=== PATIENT | female | born 2005 | race Caucasian/White ===

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

== ENCOUNTER → 2023-07-17 | Outpatient (CLI) | payer OTHER ==
--- NOTE | 2023-07-18 12:08 | US ---
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 IMPRESSION: No evidence to suggest thyroid nodule. 2017 ACR TI-RADS LEVEL: TR-RADS 1 - BENIGN: No FNA *Highest TI-RADS level nodule reported
== END | disposition home or self-care (01) ==
LOC: RADUSWWP 15:31
PROVIDERS: ATTEND Family Medicine
DX: E04.1 Nontoxic single thyroid nodule (principal)
CPT/HCPCS: 76536

== ENCOUNTER → 2023-08-09 | Day surgery (SDC) | payer OTHER ==
[~2023-08-09] MED LIST: LIDOCAINE 1% (10MG/ML) FOR IV START INTRADERMA PRN; PROPOFOL 10 MG/ML 20 ML VIAL IV ONE
[2023-08-09] MEDS: LACTATED RINGERS 1,000 ML IV SCH (07:06)
[2023-08-09] MEDS: ONDANSETRON 4 MG/2 ML VIAL ONE (07:07)
[2023-08-09] MEDS: DEXAMETHASONE SOD PHOSPHATE 4 MG/ML 1 ML VIAL IVP ONE (07:07)
[2023-08-09 07:26] VITALS: RESP 16; TEMP 97.4
--- NOTE | 2023-08-09 07:56 | P.PCN ---
Date of Procedure: 08/09/23 Procedure(s) Performed: Brief history: Patient is a pleasant 17-year-old white female scheduled for an elective upper endoscopy as well as colonoscopy as a part of evaluation of chronic diarrhea, abdominal pain and progressive weight loss of 20 pounds in the last 3 to 4 years duration. Procedure performed: Esophagogastroduodenoscopy with biopsy Colonoscopy with biopsy Preoperative diagnosis: Chronic abdominal pain, diarrhea and progressive weight loss of 3 years duration Anesthesia: MAC Procedure: After informed consent was obtained from the patient was brought into the endoscopy unit and IV sedation was administered by anesthesia under continuous monitoring. Initially upper endoscopy was done. The Olympus GF 160 video endoscope was inserted inserted into the mouth and esophagus intubated without any difficulty and was gradually advanced into the stomach and duodenum and carefully examined. The bulb and second part of the duodenum appeared normal. Biopsies were done from the duodenum to evaluate for celiac disease. The scope was then withdrawn into the stomach adequately insufflated with air and upon careful examination the antrum had mild gastritis and biopsies were done from this area. Body, cardia and fundus appeared normal. The scope was then withdrawn into the esophagus. The GE junction was located at 40 cm to the incisors. It appeared regular with no erythema erosions or ulcerations. Rest of the esophagus appeared normal. Patient tolerated the procedure well. At this time the patient continued to remain sedation. Initial digital rectal examination was normal. Olympus CF 160 video colonoscope was then inserted into the rectum and gradually advanced to the cecum without any difficulty. Careful examination was performed as the scope was gradually being withdrawn. The prep was excellent. The cecum, ascending colon, transverse colon, descending colon, sigmoid colon and rectum appeared normal. Retroflexion was performed in the rectum and no lesions were noted.Biopsies were done from the ascending and descending colon to rule microscopic/collagenous colitis. Patient tolerated the procedure well. Impression: 1. Upper endoscopy revealed mild antral gastritis but no evidence of esophagitis or peptic ulcer disease 2. Colonoscopy was within normal limits with no evidence of colitis or colorectal neoplasia. Terminal ileum was also normal. Recommendations: Findings of this examination were discussed with the patient as well as her family. She was advised to follow-up with the biopsy results. She will be seen in the office in 3 to 4 weeks.
[2023-08-09 08:57] VITALS: BP 102/61; PULSE 88
== END ==
LOC: ORWHC2ENDO 06:32
PROVIDERS: ATTEND Internal Medicine Gastroenterology
DX: K29.50 Unspecified chronic gastritis without bleeding (principal); K52.9 Noninfective gastroenteritis and colitis, unspecified; G89.29 Other chronic pain; F41.9 Anxiety disorder, unspecified; F32.A Depression, unspecified; Z79.899 Other long term (current) drug therapy; Z88.2 Allergy status to sulfonamides
CPT/HCPCS: 81025; 88305; 45380; 43239; J1100; J2405; J2704

== ENCOUNTER → 2023-11-25 | Outpatient (CLI) | payer OTHER ==
--- NOTE | 2023-12-19 07:02 | MR ---
Patient: Kg Drummond L Ordering Physician: Unknown, Unknown ID: [id number] Phone, Pager: Phone: N/A Pager: N/A : 2005 Age/Gender: 17Y, F Primary Location: N/A Procedure: MR angio he ad wo con Study Date: 11/25/2023 7:13:49 PM EXAMINATION TYPE: MR angio head wo con DATE OF EXAM: 11/25/2023 9:56 PM CLINICAL INDICATION: Headaches, dizziness COMPARISON: Same day MRI. Technical: 3-D [id number] Axial with MIP reconstruction created on a separate workstation.. IV Contrast: None Findings: Vertebral arteries: The vertebral arteries are patent. Vertebral arteries are: Codominant. Basilar artery: The basilar artery is intact. The basilar artery bifurcation is normal. Internal Carotid arteries: The cervical, petrous, cavernous and supraclinoid segments are normal. MARVIN: Patent with no evidence of aneurysm. ACOM: Present without evidence of aneurysm. MCA: Patent with no evidence of aneurysm. 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 origin of the right. PCOM: origin right posterior cerebral artery. Normal caliber left. IMPRESSION: 1. No evidence of aneurysm or significant stenosis. 2. Area seen on same day MRI within the medial right parietal lobe is non the [id number].
--- NOTE | 2023-12-19 07:03 | MR ---
Patient: Kg Drummond L Ordering Physician: Unknown, Unknown ID: [id number] Phone, Pager : Phone: N/A Pager: N/A : 2005 Age/Gender: 17Y, F Primary Location: N/A Procedure: MR brain w o/w con Study Date: 11/25/2023 7:15:28 PM EXAMINATION TYPE: MR brain wo/w con DATE OF EXAM: 11/25/2023 9:51 PM CLINICAL INDICATION: Dizziness, headaches COMPARISON: Same day angiogram. TECHNIQUE: Multi planar, multi sequence imaging was performed through the brain including: T1, T2, In version recovery, susceptibility weighted imaging and gradient echo imaging and Diffusion weighted im aging. The patient was then given intravenous contrast and multi planar, T1 fat-saturation images wer e obtained. IV Contrast: cc 5 cc Gadavist. FINDINGS: Right medial parietal lobe area of increased FLAIR signal lower T1 high T2 signal. Involving the subc ortical white matter. Increased FLAIR signal area measures 20 x 11 x 13 mm. The casper-white junctions, ventricular system, basal cisterns appear unremarkable. Diffusion-weighted imaging shows no evidence of restricted diffusion to suggest acute/subacute infarct. Intracranial ar terial flow voids are maintained. Midline structures show no abnormality. The susceptibility weighted images do not reveal any evidence for micro-hemorrhage. After administration of gadolinium, no abnor mal enhancement is seen. The bone marrow signal is within normal limits. Paranasal sinuses and mastoid air cells: No significant paranasal sinus disease. Visualized orbits: Orbital contents are intact. IMPRESSION: 1. Abnormal FLAIR signal within the medial aspect of the right parietal lobe no abnormal postcontras t enhancement within this region. Findings are nonspecific with low-grade glioma not excluded. Follow -up and management with neurosurgery lung with with short-term follow-up MRI brain with contrast is r ecommended. 2. No evidence of acute/subacute infarct or abnormal enhancement.
== END | disposition home or self-care (01) ==
LOC: RADMRIMAIN 20:15
PROVIDERS: ATTEND Family Medicine
DX: R42 Dizziness and giddiness (principal)
CPT/HCPCS: 70544; 70553; A9585

== ENCOUNTER → 2024-02-28 | Outpatient (CLI) | payer OTHER ==
--- NOTE | 2024-03-01 01:43 | MR ---
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 COMPARISON: MR brain 12/19/2023, MRA head 12/19/2023. TECHNIQUE: Multi planar, multi sequence imaging was performed through the brain. The patient was then given 5.5 cc of Gadobutrol intravenously and multi planar, T1 fat-saturation images were obtained. FINDINGS: No significant change in right medial parietal lobe area of increased FLAIR signal with low T1/high T 2 signal. This measures approximately 2.2 x 1.9 x 1.8 cm (series 601, image 52). This comes in close proximity to the cortex. No corresponding enhancement. No new suspicious lesions. No other abnormal e nhancement identified. The casper-white junctions, ventricular system, basal cisterns appear unremarkable. Diffusion-weighted imaging shows no evidence of restricted diffusion to suggest acute/subacute infarct. Intracranial art erial flow voids are maintained. Midline structures show no abnormality. The susceptibility weighted images do not reveal any evidence for micro-hemorrhage. The bone marrow signal is within normal limits. The paranasal sinuses and globes are unremarkable. IMPRESSION: 1. No significant change in abnormal single FLAIR signal lesion within the medial aspect of the right parietal lobe. No corresponding enhancement identified. This is again nonspecific with a variety of etiologies including leukodystrophy versus migraine versus ischemic disease versus demyelinating dise ase versus other. No new suspicious lesions identified. Neurology consult is recommended. 2. No acute or subacute infarct. [facility], , 03/01/2024 1:41 AM
== END | disposition home or self-care (01) ==
LOC: RADMRIMAIN 18:28
PROVIDERS: ATTEND Neurological Surgery
DX: D43.2 Neoplasm of uncertain behavior of brain, unspecified (principal)
CPT/HCPCS: 70553; A9585